=== PATIENT | female | born 1950 | race Two or more races ===

== ENCOUNTER → 2017-10-29 | Emergency (ER) | payer OTHER ==
[~2017-10-29] VITALS: Ht 170.2 cm; Wt 99.8 kg
[~2017-10-29] MED LIST: CATAFLAM50 MG PO; PERMETHRIN60 GM TOP; VASOTEC5 MG; [UNRECOGNIZED DRUG - REMARK]
== END | disposition home or self-care (01) ==
LOC: ER 10:26
DX: B86 Scabies (principal)